=== PATIENT | female | born 1935 | race Caucasian/White ===

== ENCOUNTER 2019-12-31 11:30 | Emergency (ER) | payer OTHER, BC ==
[~2019-12-31] VITALS: Ht 175.3 cm; Wt 72.6 kg
[~2019-12-31 11:30] MED LIST: ASPIRIN325 PO; ATORVASTATIN CA40 MG PO; CLOPIDOGREL75 MG PO; METOPROLOL SUCC25 M1 PO; PEPCID20 MG PO
[2019-12-31] MEDS ORDERED: COQ-1030 MG PO (12:06)
[2019-12-31 12:48] LABS: ABSOLUTE NEUTROPHILS 5.7 thou/uL (1.4-8.2); BASOPHILS 0.9 % (0.0-2.0); EOSINOPHILS 3.2 % (0.0-3.0); HEMATOCRIT 41.4 % (37.0-47.0); HEMOGLOBIN 14.2 gm/dL (12.0-15.0); LYMPHOCYTES 12.2 % (24.0-44.0); MCH 30.3 pg (26.0-34.0); MCHC 34.3 g/dL (28.0-37.0); MCV 88.5 fL (80.0-100.0); MONOCYTES 7.1 % (1.0-8.0); PLATELET COUNT 169 thou/uL (150-400); POLYS 76.6 % (36.0-66.0); RBC 4.68 mil/uL (4.20-5.00); RDW 13.5 % (10.5-14.5); WBC 7.4 thou/uL (4.0-11.0)
[2019-12-31 12:54] LABS: ANION GAP 8 mmol/L (7-16); BUN 22 mg/dL (7-18); CALCIUM 8.9 mg/dL (8.5-10.1); CHLORIDE 107 mmol/L (98-107); CO2 29 mmol/L (21-32); GLUCOSE 106 mg/dL (74-106); POTASSIUM 3.9 mmol/L (3.5-5.1); SODIUM 144 mmol/L (136-145)
[2019-12-31 13:03] LABS: ALBUMIN 3.5 g/dL (3.4-5.0); SGOT 23 U/L (15-37); SGPT 33 U/L (30-65); TOTAL BILIRUBIN 0.6 mg/dL (<0.1-1.0); TOTAL PROTEIN 6.8 g/dL (6.4-8.2); TROPONIN-I <0.06 ng/mL (<0.06)
[2019-12-31 14:18] LABS: URINE BILIRUBIN NEGATIVE (Negative); URINE BLOOD NEGATIVE (Negative); URINE CLARITY CLEAR; URINE COLOR YELLOW; URINE GLUCOSE-RANDOM* NEGATIVE (Negative); URINE KETONES NEGATIVE (Negative); URINE LEUKOCYTES-REFLEX NEGATIVE (Negative); URINE NITRITE-REFLEX NEGATIVE (Negative); URINE PROTEIN (DIPSTICK) NEGATIVE (Negative); URINE UROBILINOGEN 0.2 E.U./dl (0.2-1.0)
[2019-12-31 14:32] LABS: APTT 26.3 Seconds (24.5-32.8)
--- NOTE | 2019-12-31 15:00 | EKG ---
[facility] Елен[address] [place] [address] ELECTROCARDIOGRAM REPORT Name: MENARDBERTHA Room #: REG [facility]#: [id number] Admission: 12/31/19 Attend Phys: Discharge: Date of : 37 Report #: [id number] THIS REPORT FOR: cc: FAM - Family physician unknown FAM - Family physician unknown Nicho Albert MD ~ THIS REPORT FOR: //name// [facility] ED Test Date: 2019-12-31 Test Time: 11:53:00 Pat Name: BERTHA MENARD Department: Room: Gender: F Research Coordinator: [facility] : 1935 Requested By: Dianne Lemon Order Number: [id number] MD: Nicho Albert Measurements Intervals [place] Rate: 66 P: 35 [place]: 182 QRS: -13 QRSD: 87 T: 4 QT: 411 QTc: 431 Interpretive Statements Sinus rhythm Low voltage, precordial leads Borderline repolarization abnormality Compared to ECG 03/29/2018 07:08:14 ST (T wave) deviation no longer present Myocardial infarct finding no longer present Electronically Signed On 12-31-2019 14:58:40 CDT by Nicho Albert [email or web address] <ELECTRONICALLY SIGNED> By: Nicho Albert MD 12/31/19 1458 1153 1153 Nicho Albert MD /EPI
[2019-12-31 15:12] VITALS: BP 143/71
== END 2019-12-31 15:12 | disposition home or self-care (01) ==
LOC: ER 11:30
PROVIDERS: Physician Assistant
DX: R42 Dizziness and giddiness (principal); R06.02 Shortness of breath; R06.00 Dyspnea, unspecified; I25.2 Old myocardial infarction; I10 Essential (primary) hypertension; E78.00 Pure hypercholesterolemia, unspecified; Z90.710 Acquired absence of both cervix and uterus; Z98.890 Other specified postprocedural states; Z79.899 Other long term (current) drug therapy

== ENCOUNTER → 2020-01-01 | Outpatient (CLI) | payer OTHER, BC ==
[~2020-01-01] MED LIST changes: +COQ-1030 MG PO
== END ==
LOC: SJCVCIMAG 13:19 → SJCVC 13:19
DX: I65.23 Occlusion and stenosis of bilateral carotid arteries (principal); R94.31 Abnormal electrocardiogram [ECG] [EKG]; I25.10 Atherosclerotic heart disease of native coronary artery without angina pectoris; I10 Essential (primary) hypertension; E78.00 Pure hypercholesterolemia, unspecified; I25.2 Old myocardial infarction; E03.9 Hypothyroidism, unspecified; Z79.899 Other long term (current) drug therapy; Z82.49 Family history of ischemic heart disease and other diseases of the circulatory system; Z95.820 Peripheral vascular angioplasty status with implants and grafts

== ENCOUNTER → 2020-05-23 | Outpatient (CLI) | payer OTHER, BC | LOC: SJCVCIMAG 05-12 10:53 | PROVIDERS: ATTEND Internal Medicine Cardiovascular Disease | DX: I49.3 Ventricular premature depolarization (principal); I25.10 Atherosclerotic heart disease of native coronary artery without angina pectoris; E78.00 Pure hypercholesterolemia, unspecified; I25.2 Old myocardial infarction; Z95.820 Peripheral vascular angioplasty status with implants and grafts; Z79.899 Other long term (current) drug therapy ==

== ENCOUNTER 2020-06-09 06:30 | Observation (INO) | payer OTHER, BC ==
[~2020-06-09] VITALS: Ht 175.3 cm; Wt 72.6 kg
[2020-06-09] VITALS (9 sets, daily range): BP systolic 109–132; BP diastolic 51–76
[2020-06-09 07:32] LABS: HEMATOCRIT 41.9 % (37.0-47.0); MCH 29.2 pg (26.0-34.0); MCHC 33.3 g/dL (28.0-37.0); MCV 87.7 fL (80.0-100.0); RBC 4.78 mil/uL (4.20-5.00); RDW 13.7 % (10.5-14.5); WBC 6.2 thou/uL (4.0-11.0)
--- NOTE | 2020-06-09 07:38 | EKG ---
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 06/09/2038 4 4 Idris Eden MD, [facility] /EPI
[2020-06-09 07:43] LABS: CREATININE 0.9 mg/dL (0.6-1.0); POTASSIUM 3.9 mmol/L (3.5-5.1)
[2020-06-09] MEDS ORDERED: TOPROL XL25 MG PO (08:48)
--- NOTE | 2020-06-09 16:47 | NUR ---
NEW ADMIT FROM [facility] FOR RCA STENT PLACEMENT. RIGHT GROIN SIGHT MINX DRESSING C/D/I. PT OFF OF BEDREST PRIOR TO ADMISSION TO FLOOR. DENIES PAIN, DENIES SOB. STEADY GAIT. CALLS FOR ASSISTANCE. ORDERS ACKNOWLEDGED. ADMISSON ASSESMENT. HISTORY, EDUCATION COMPLERED. WILL DC TOMORROW.
--- NOTE | 2020-06-09 17:25 | CATHLAB ---
[facility] [place] [address] INVASIVE PROCEDURE REPORT Name: BERTHA MENARD Room #: 209-P ADM [facility]#: [id number] Admission: 06/09/20 Attend Phys: Nestor Leonardo MD, Discharge: Date of : 37 Report #: [id number] THIS REPORT FOR: cc: FAM - Family physician unknown FAM - Family physician unknown Nestor Leonardo MD [facility] ~ APPROVED REPORT Study performed: 06/09/2020 08:14:57 Patient Details Patient Status: Out-Patient Room #: The patient is a 85 year-old female Event Personnel Nestor Leonardo Entry Level Business Analyst, Bong Finn RN RN, Kevin Hernandez RTR Scrub, Agata Davila RTR, DELORIS Scrub, Froilan Felder RTR Monitor Procedures Performed Left Heart Cath w/or w/o Coronaries [id number] [facility] [address] Place w/wo Plasty Single RCA 769935 Abdominal Aortography 803214 Art Access - R femoral artery* Hemostasis w/ Mynx 13492 Initial Mod Sed Same Phys/QHP Gr5y 116384 29216 Mod Sed Same Phys/QHP Ea 365337 Procedure Narrative The patient was brought electively to the Cardiac Catheterization Laboratory and was prepped and draped in a sterile manner. The Right Groin^ was infiltrated with 1% Lidocaine subcutaneous anesthesia. A PINNACLE 6FR Sheath #[id number] sheath was inserted into the RFA^. Coronary angiography was performed using coronary diagnostic catheters. The right coronary system was accessed and visualized with a JR4 catheter. The left coronary system was accessed and visualized with a JL4 catheter. The left ventricle was accessed and visualized with a PIGTAIL catheter. Closure device was deployed with a Fr MYNX CONTROL 6F/7F L#[id number]. The patient tolerated the procedure well and there were no complications associated with the procedure. There was no hematoma. Intraoperative Conscious Sedation Sedation start time: 8:51 Case end Time: 9:40 Fentanyl 50 mcg Versed [address] [address] INVASIVE PROCEDURE REPORT Name: BERTHA MENARD Delilah Room #: 209-P [facility] .R.#: [id number] Admission: 06/09/20 Attend Phys: Nestor Leonardo, Discharge: Date of : 37 Report #: [id number] Fluoro Time: 6.10 minutes Dose: DAP 6501.90 cGycm2 878 mGy Contrast Type and Amount: Omnipaque 145 ml Hemodynamics The aortic pressure is 112/47 mmHg with a mean of 64 mmHg. The left ventricular pressure is 118/1 mmHg with a mean of mmHg. The left ventricular end diastolic pressure is 8 mmHg. PCI Technique Lesion Percutaneous coronary intervention was performed on the mid right coronary artery. A LAUNCHER 6FR JR 4 #[id number] Guide Catheter was used to engage the RCA ostium. A Luge Wire .014 x 182CM #[id number] Interventional Guidewire was used to cross the lesion. BALLOON DILATION A Balloon catheter Sprinter OTW 2.25 x 12 #[id number] was inserted and inflated up to 6.00atm for 11seconds. Additional Inflation: 12.00atm for 36seconds. STENT DEPLOYMENT A stent RESOLUTE VIKI OTW 2.5 X 12 #[id number] was inserted and inflated up to 12.00atm for 32seconds. Additional Inflation: 14.00atm for 19seconds. Conclusion #1. Successful PTCA stent of a 90% mid RCA lesion placement of a 2.5 x 12 resolute drug-eluting stent JAVED grade III flow small posterior lateral branch has a high-grade lesion will treat medically. Extensive and larger posterior lateral and PDA are mildly diseased. Anatomically dominant vessel. #2 left main with mild ostial disease and calcified giving rise to LAD and circumflex #3 the LAD is moderately diseased in the mid and distal vessel. 50 to 60% eccentric mid tandem lesions are noted some respects approaching 70% but a smaller diffusely diseased LAD at the apex. 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 normal left ventricular size systolic function normal 55% ejection fraction. #6 abdominal aorta is mildly tortuous but no aneurysm no flow-limiting disease. Recommendations and plan: Continue aggressive risk factor [address] [address] INVASIVE PROCEDURE REPORT Name: BERTHA MENARD Room #: 209-P [facility] M.R.#: [id number] Admission: 06/09/20 Attend Phys: Nestor Leonardo, Discharge: Date of : 37 Report #: [id number] modification. Tolerated the stent placement well. Dual antiplatelet therapy has been initiated. To CCU to follow post coronary stent protocol. <ELECTRONICALLY SIGNED> By: Nestor Leonardo MD, FACC 06/09/201723 23 23 Nestor Leonardo MD, FACC /INF
--- NOTE | 2020-06-10 04:18 | NUR ---
ASSESSMENTS CHARTED, MEDS CHARTED GIVEN. PATIENT RESTING IN BED DURING SHIFT. UP AT JASSI IN ROOM. FALL PRECAUTIONS IN PLACE DURING SHIFT. RIGHT GROIN SITE IS SOFT, DRY AND INTACT. DENIED PAIN. PLAN OF CARE IS TO GO HOME IN THE MORNING.
[2020-06-10 04:39] LABS: HEMATOCRIT 39.5 % (37.0-47.0); HEMOGLOBIN 13.1 gm/dL (12.0-15.0); MCH 29.4 pg (26.0-34.0); MCHC 33.1 g/dL (28.0-37.0); MCV 88.9 fL (80.0-100.0); RBC 4.45 mil/uL (4.20-5.00); RDW 13.7 % (10.5-14.5); WBC 6.1 thou/uL (4.0-11.0)
[2020-06-10 04:51] LABS: ALBUMIN 3.2 g/dL (3.4-5.0); CALCIUM 8.7 mg/dL (8.5-10.1); CREATININE 0.9 mg/dL (0.6-1.0); POTASSIUM 3.9 mmol/L (3.5-5.1); TOTAL BILIRUBIN 0.5 mg/dL (0.2-1.0); TOTAL PROTEIN 6.1 g/dL (6.4-8.2); TROPONIN-I 0.18 ng/mL (<0.06)
[2020-06-10 05:00] VITALS: BP 107/58
[2020-06-10 07:00] VITALS: BP 110/65
[2020-06-10] MEDS ORDERED: ASPIR 8181 MG PO (07:33)
[2020-06-10] MEDS ORDERED: ZETIA10 MG PO (07:33)
--- NOTE | 2020-06-10 08:02 | EKG ---
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
[2020-06-10 10:39] VITALS: BP 110/65
== END 2020-06-10 12:29 | disposition home or self-care (01) ==
LOC: CATH 06:30 → 2N 14:44 → CATH 14:45 → 2N 06-10 12:29
PROVIDERS: Nurse Practitioner Adult Health; ADMIT Internal Medicine Cardiovascular Disease; ATTEND Internal Medicine Cardiovascular Disease
DX: I25.10 Atherosclerotic heart disease of native coronary artery without angina pectoris (principal); I10 Essential (primary) hypertension; E78.5 Hyperlipidemia, unspecified; M19.90 Unspecified osteoarthritis, unspecified site; E78.00 Pure hypercholesterolemia, unspecified; Z79.82 Long term (current) use of aspirin; Z79.899 Other long term (current) drug therapy

== ENCOUNTER 2020-07-06 11:17 | Emergency (ER) | payer OTHER, BC ==
[~2020-07-06] VITALS: Ht 175.3 cm; Wt 72.6 kg
[~2020-07-06 11:17] MED LIST changes: +ASPIR 8181 MG PO; +TOPROL XL25 MG PO; +ZETIA10 MG PO
[2020-07-06 12:21] LABS: ABSOLUTE NEUTROPHILS 6.1 thou/uL (1.4-8.2); BASOPHILS 0.6 % (0.0-2.0); HEMATOCRIT 40.3 % (37.0-47.0); HEMOGLOBIN 13.7 gm/dL (12.0-15.0); MCH 29.8 pg (26.0-34.0); MCV 87.6 fL (80.0-100.0); MONOCYTES 6.7 % (1.0-8.0); PLATELET COUNT 175 thou/uL (150-400); POLYS 80.7 % (36.0-66.0); RDW 13.7 % (10.5-14.5); WBC 7.5 thou/uL (4.0-11.0)
[2020-07-06 12:30] LABS: ANION GAP 9 mmol/L (7-16); BUN 19 mg/dL (7-18); CALCIUM 9.3 mg/dL (8.5-10.1); CHLORIDE 105 mmol/L (98-107); CO2 28 mmol/L (21-32); CREATININE 0.9 mg/dL (0.6-1.0); GLUCOSE 96 mg/dL (74-106); POTASSIUM 4.2 mmol/L (3.5-5.1); SODIUM 142 mmol/L (136-145)
[2020-07-06 12:40] LABS: ALBUMIN 3.5 g/dL (3.4-5.0); SGOT 22 U/L (15-37); SGPT 27 U/L (30-65); TOTAL BILIRUBIN 0.9 mg/dL (0.2-1.0); TOTAL PROTEIN 6.9 g/dL (6.4-8.2); TROPONIN-I <0.06 ng/mL (<0.06)
[2020-07-06 13:03] LABS: URINE BILIRUBIN NEGATIVE (Negative); URINE BLOOD NEGATIVE (Negative); URINE CLARITY CLEAR; URINE COLOR YELLOW; URINE GLUCOSE-RANDOM* NEGATIVE (Negative); URINE KETONES NEGATIVE (Negative); URINE PROTEIN (DIPSTICK) NEGATIVE (Negative); URINE UROBILINOGEN 0.2 E.U./dl (0.2-1.0)
[2020-07-06 13:06] LABS: URINE LEUKOCYTES-REFLEX 1+ (Negative); URINE NITRITE-REFLEX POSITIVE (Negative)
[2020-07-06 13:17] LABS: SQUAMOUS 0-3 Few /LPF (0-3)
[2020-07-06 13:18] LABS: BACTERIA-REFLEX >30 Many /HPF (None Seen); CASTS None Seen /LPF (None Seen); CRYSTALS None Seen /LPF (None Seen); URINE RBC 0-2 Rare /HPF (0-2); URINE WBC-REFLEX 6-15 Few /HPF (0-5)
[2020-07-06 13:46] VITALS: BP 136/67
[2020-07-06] MEDS ORDERED: KEFLEX500 M1 PO (13:51)
--- NOTE | 2020-07-07 07:14 | EKG ---
[facility] [place] [address] ELECTROCARDIOGRAM REPORT Name: MENARDBERTHA Room #: [facility]#: [id number] Admission: 07/06/20 Attend Phys: Discharge: 07/06/20 Date of : 37 Report #: [id number] THIS REPORT FOR: cc: LUIZA Deng family physician/PCP LUIZA Deng family physician/PCP Elias Grider MD [facility] THIS REPORT FOR: //name// [facility] ED Test Date: 2020-07-06 Test Time: 12:24:27 Pat Name: BERTHA MENARD Department: Room: Gender: F Mechanic: [place] : 1935 Requested By: Dianne Lemon Order Number: [id number] MD: Elias Gridre Measurements Intervals [place] Rate: 63 P: 28 [place]: 192 QRS: -14 QRSD: 89 T: 18 QT: 431 QTc: 442 Interpretive Statements Sinus rhythm Inferior infarct, old Baseline wander in lead(s) III,aVL Compared to ECG 06/10/2020 07:09:39 No significant changes Electronically Signed On 07-07-2020 7:14:37 LIFTER DRIVER by Elias Grider [email or web address] <ELECTRONICALLY SIGNED> By: Elias Grider MD, FACC 07/07/20 0714 1224 1224 Elias Grider MD, [facility] /EPI
== END 2020-07-06 14:35 | disposition home or self-care (01) ==
LOC: ER 11:17
PROVIDERS: Physician Assistant
DX: L03.116 Cellulitis of left lower limb (principal); N39.0 Urinary tract infection, site not specified; R42 Dizziness and giddiness; Z90.710 Acquired absence of both cervix and uterus; Z79.01 Long term (current) use of anticoagulants; Z79.82 Long term (current) use of aspirin; Z79.899 Other long term (current) drug therapy

== ENCOUNTER 2020-08-02 16:33 | Emergency (ER) | payer OTHER, BC ==
[~2020-08-02] VITALS: Ht 172.7 cm; Wt 81.2 kg
[~2020-08-02 16:33] MED LIST changes: +KEFLEX500 M1 PO
[2020-08-02 17:37] LABS: ABSOLUTE NEUTROPHILS 7.1 thou/uL (1.4-8.2); BASOPHILS 0.3 % (0.0-2.0); EOSINOPHILS 0.2 % (0.0-3.0); HEMATOCRIT 36.8 % (37.0-47.0); HEMOGLOBIN 12.3 gm/dL (12.0-15.0); LYMPHOCYTES 2.6 % (24.0-44.0); MCH 29.2 pg (26.0-34.0); MCHC 33.5 g/dL (28.0-37.0); MONOCYTES 6.1 % (1.0-8.0); PLATELET COUNT 130 thou/uL (150-400); POLYS 90.8 % (36.0-66.0); RBC 4.23 mil/uL (4.20-5.00); RDW 13.4 % (10.5-14.5); WBC 7.8 thou/uL (4.0-11.0)
[2020-08-02 17:51] LABS: ANION GAP 13 mmol/L (7-16); BUN 23 mg/dL (7-18); CALCIUM 9.5 mg/dL (8.5-10.1); CHLORIDE 103 mmol/L (98-107); CO2 25 mmol/L (21-32); GLUCOSE 127 mg/dL (74-106); POTASSIUM 3.5 mmol/L (3.5-5.1); SODIUM 141 mmol/L (136-145)
[2020-08-02 18:02] LABS: ALBUMIN 3.3 g/dL (3.4-5.0); DIRECT BILIRUBIN 0.2 mg/dL (<0.1-0.2); LIPASE 69 U/L (73-393); SGOT 38 U/L (15-37); SGPT 43 U/L (14-59); TOTAL BILIRUBIN 1.1 mg/dL (0.2-1.0); TOTAL PROTEIN 6.6 g/dL (6.4-8.2); TROPONIN-I <0.06 ng/mL (<0.06)
[2020-08-02 18:54] LABS: URINE BILIRUBIN NEGATIVE (Negative); URINE BLOOD NEGATIVE (Negative); URINE CLARITY CLEAR; URINE COLOR YELLOW; URINE GLUCOSE-RANDOM* NEGATIVE (Negative); URINE KETONES 1+ (Negative); URINE LEUKOCYTES-REFLEX TRACE (Negative); URINE PROTEIN (DIPSTICK) TRACE (Negative)
[2020-08-02 18:57] LABS: URINE NITRITE-REFLEX POSITIVE (Negative)
[2020-08-02 19:06] LABS: SQUAMOUS 0-3 Few /LPF (0-3)
[2020-08-02 19:07] LABS: BACTERIA-REFLEX >30 Many /HPF (None Seen); CASTS None Seen /LPF (None Seen); CRYSTALS None Seen /LPF (None Seen); URINE RBC None Seen /HPF (0-2); URINE WBC-REFLEX 6-15 Few /HPF (0-5)
[2020-08-02] MEDS ORDERED: KEFLEX500 M1 PO (19:08)
[2020-08-02 19:16] VITALS: BP 108/53
--- NOTE | 2020-08-04 07:43 | EKG ---
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 08/04/20 0743 1651 1651 Idris Eden MD, FACC /EPI
== END 2020-08-02 19:17 | disposition home or self-care (01) ==
LOC: ER 16:33
PROVIDERS: Nurse Practitioner
DX: N39.0 Urinary tract infection, site not specified (principal); I25.2 Old myocardial infarction; Z90.710 Acquired absence of both cervix and uterus; Z98.890 Other specified postprocedural states; Z79.899 Other long term (current) drug therapy; Z79.82 Long term (current) use of aspirin

== ENCOUNTER → 2020-09-17 | Outpatient (CLI) | payer OTHER, BC | LOC: SJCVC 14:54 | PROVIDERS: ATTEND Internal Medicine Cardiovascular Disease | DX: I25.10 Atherosclerotic heart disease of native coronary artery without angina pectoris (principal); R94.31 Abnormal electrocardiogram [ECG] [EKG]; I49.3 Ventricular premature depolarization; I49.49 Other premature depolarization; E78.00 Pure hypercholesterolemia, unspecified; I10 Essential (primary) hypertension; E03.9 Hypothyroidism, unspecified; I25.2 Old myocardial infarction; Z90.710 Acquired absence of both cervix and uterus; Z98.890 Other specified postprocedural states; Z95.828 Presence of other vascular implants and grafts; Z79.82 Long term (current) use of aspirin; Z79.899 Other long term (current) drug therapy; Z82.49 Family history of ischemic heart disease and other diseases of the circulatory system ==

== ENCOUNTER → 2021-03-17 | Outpatient (CLI) | payer OTHER, BC | LOC: SJCVC 14:44 | PROVIDERS: ATTEND Internal Medicine Cardiovascular Disease | DX: R94.31 Abnormal electrocardiogram [ECG] [EKG] (principal); I25.10 Atherosclerotic heart disease of native coronary artery without angina pectoris; E78.00 Pure hypercholesterolemia, unspecified; I10 Essential (primary) hypertension; E03.9 Hypothyroidism, unspecified; Z95.820 Peripheral vascular angioplasty status with implants and grafts; Z79.82 Long term (current) use of aspirin; Z79.899 Other long term (current) drug therapy ==